=== PATIENT | male | born 1955 | race Caucasian/White ===

== ENCOUNTER 2023-07-16 05:52 | Day surgery (SDC) | payer OTHER, SELFPAY ==
[2023-07-03 11:21] VITALS: BMI 25.7
[2023-07-03 11:39] LABS: % Basophils 0.9 % (0-2); % Eosinophils 2.1 % (0-6); % Immature Granulocytes 0.5 % (0-0.5); % Lymphocytes 36.3 % (20.5-51.1); % Monocytes 10.3 % (1.7-9.3); % Neutrophils 49.9 % (42.2-75.2); Absolute Basophils 0.1 10^3/uL (0-0.2); Absolute Eosinophils 0.1 10^3/uL (0-0.7); Absolute Lymphocytes 2.1 10^3/uL (1.2-3.4); Absolute Monocytes 0.6 10^3/uL (0.1-0.6); Absolute Neutrophils 2.8 10^3/uL (1.4-6.5); Hematocrit 40.9 % (39.0-52.0); Hemoglobin 14.5 g/dL (13.0-18.0); Mean Corp Hgb Conc. 35.5 g/dL (33.0-37.0); Mean Corpuscular Hgb 35.5 pg (27.0-31.0); Mean Platelet Volume 9.5 fL (7.4-10.4); Nucleated Red Blood Cells % 0 % (-); Platelet Count 199 10^3/uL (130-400); Red Blood Cell Count 4.09 10^6/uL (4.70-6.10); Red Cell Dist. Width 16.6 % (11.5-14.5); White Blood Cell Count 5.7 10^3/uL (4.8-10.8)
[2023-07-03 11:49] LABS: INR 1.24; PT 15.4 Sec (11.4-14.6)
[2023-07-03 11:56] LABS: ALT (SGPT) 35 U/L (0-50); AST (SGOT) 49 U/L (17-59); Albumin 4.1 g/dl (3.5-5.0); Alkaline Phosphatase 113 U/L (38-126); Blood Urea Nitrogen 11 mg/dl (9-20); Calcium 9.3 mg/dl (8.4-10.2); Carbon Dioxide 34 mmol/L (22-30); Chloride 98 mmol/L (98-107); Estimated Creatinine Clearance 68 ml/min; Glucose 130 mg/dl (70-99); Magnesium 1.8 mg/dl (1.6-2.3); Potassium 3.5 mmol/L (3.5-5.1); Sodium 135 mmol/L (135-145); Total Bilirubin 1.1 mg/dl (0.2-1.3); Total Protein 6.9 g/dl (6.3-8.2); eGFR > 60.00
[2023-07-16] VITALS (11 sets, daily range): BP systolic 96–119; BP diastolic 47–63; BMI 25.8
[2023-07-16 09:06] LABS: ACT-LR - POC 266 Seconds (116-155)
[2023-07-16 09:37] LABS: ACT-LR - POC 310 Seconds (116-155)
[2023-07-16 10:14] LABS: ACT-LR - POC 366 Seconds (116-155)
[2023-07-16 10:31] LABS: ACT-LR - POC 322 Seconds (116-155)
[2023-07-16 10:50] LABS: ACT-LR - POC 158 Seconds (116-155)
--- NOTE | 2023-07-16 10:57 | ITS.CL.ABL ---
Workforce Specialist - Ablation
Ablation
Procedure Report:
Primary Service Desk Analyst: Albert Terry MD
Procedure Date: 07/16/2023
Patient History:
Patient is a 68-year-old male with past medical history significant for heart failure with preserved ejection fraction now mildly reduced, paroxysmal atrial fibrillation on Eliquis and amiodarone, tobacco use disorder, alcohol use, hypertension.
See H&P for complete details.
Indication:
Symptomatic paroxysmal atrial fibrillation
Heart failure with mildly reduced ejection fraction
Arrhythmia Specific History:
Prior Medical Therapies for Rate and Rhythm Control:
X Beta-sarah
[ ] Calcium channel-sarah
X Amiodarone
[ ] Dronederone
[ ] Sotalol
[ ] Flecainide
[ ] Dofetilide
[ ] Options limited by bradycardia
[ ] Options limited by comorbid renal disease
Prior Procedural Therapies for AF/AFL:
X Cardioversion
[ ] Pulmonary Vein Isolation
[ ] Posterior Wall Isolation
[ ] Additional lines (Specify)
[ ] Surgical Melendez-MAZE or PVI (Specify)
Procedure Performed:
X AF ablation procedure (44402) -- includes LA/CS pacing, trans-septal, 3D mapping, + ICE
[ ] +IV drug (93459)
[ ] +Other Arrhythmia (03043)
[ ] +Other AF Line/ablation (98860)
Risks and expected recovery has been explained in detail. Alternative options have been explored, and in a shared-decision making fashion we have decided that this was the most appropriate procedure.
Method
NPO status confirmed. Grounding pad applied. Defibrillator pads applied. Continuous surface ECG, pulse oximetry, and blood pressure were monitored. Procedure was performed under general anesthesia, with anesthesia services.
Both groins were clipped, prepped with Chloraprep, and draped in sterile fashion. Time out was called. Local anesthesia administered with bupivacaine. The right and left femoral veins were accessed for catheter placement, using ultrasound guidance,
micro-puncture needle/wire, and modified seldinger technique. 3 sheaths were placed. The following catheters were used:
[ ] Tacticath SE (D/F Curve) ablation catheter
X Viewflex 9Fr ICE catheter
X Inquiry decapolar 6Fr diagnostic catheter
[ ] CRD Hex 6Fr
X Arctic Front Advance Cryoballoon (28mm)
X Achieve Advance mapping catheter (15mm)
[ ] AcusMonkeysee AcuNav 8 Fr ICE catheter
[ ]Other: [ ]
Intracardiac ultrasound (ICE) was carefully advanced into the right atrium to guide sheath placement over a J-wire, catheter placement, guide trans-septal puncture, identify potential complications, identify anatomic structures and ensure proper
contact between ablation catheter and tissue.
Heparin was given prior to trans-septal puncture. Heparin was given to achieve and maintain a target ACT of 300-400 seconds.
Trans-septal access was performed under ICE guidance. The trans-septal puncture was performed with a SafeSept wire through a Brockenbrough needle assembly. The wire was visualized as it entered the LSPV. The Brockenbrough needle assembly, SafeSept
wire and sheath dilator were removed under negative pressure. The Protrack pigtail wire was advanced through the sheath into the left atrium with position confirmed on ICE and fluoroscopy. The fixed curve long sheath was exchanged from the steerable
sheath over the Protrack wire and was advanced into the LA and positioned at the mitral annulus.
ICE and 3D mapping was performed to identify relevant cardiac structures. A careful 3D map was created to assess for regions of low-voltage and abnormal electrogram signals. Additional mapping was performed as outlined below. See synopsis for
details.
Cryoballoon ablation was performed using freeze/thaw/freeze at 2-4 minute intervals. Ablation targets included Cryoballoon temperatures of -30 degrees @ 30 seconds with goal temp typically between -40 and -50 degrees Celsius with time to effect when
measurable recorded to guide duration of application and need for repeat ablation in each vein. Esophageal temperature monitored throughout intervention. Phrenic nerve pacing performed during cryoapplication in the right pulmonary veins to monitor
for any evidence of PNI requiring application termination. See synopsis and procedure log for details.
Catheter and sheath were removed from the left atrium and post-ablation intracardiac echo evaluation was consistent with pre-ablation with no changes and no pericardial effusion and there is no left atrial thrombus or left ventricle thrombus seen.
Electrophysiology study was performed. Hemostasis was obtained with figure of 8 stitch for each groin with manual pressure. Protamine was used for reversal.
Estimated Blood Loss
5-10 mL
Complications
None
Procedure Synopsis:
The patient entered the room in sinus rhythm. Three-dimensional mapping with EnSite system was performed with reconstruction of left atrium utilizing Achieve catheter. Intracardiac ultrasound and EnSite was used for guidance of ablation and
placement of the Cryoballoon. PV seal was confirmed with pressure waveform and ICE. Using the Achieve catheter, it was confirmed that pulmonary veins were active. Patient was noted to have a left common which split to superior and inferior veins
and to low mid branches from the right superior branching anteriorly and posteriorly respectively. All pulmonary veins were isolated successfully using Cryoballoon ablation using freeze/thaw/freeze cycles at 2-4-minute intervals, with good
isrm-ul-oatheg of isolation. Additional lesions were performed at the mid branches of the right superior to complete pulmonary vein isolation. During the right-sided PV ablation, phrenic nerve pacing was performed to assess the phrenic nerve
strength and the phrenic nerve was intact throughout the right-sided ablation. Pre- and post-pulmonary vein recording and pacing from the Achieve catheter was utilized to ensure complete pulmonary vein isolation. LA voltage map created at procedure
conclusion confirming WACA of bilateral PVs.
Fluoroscopy: 12.5 minutes; 32.09 mGy; DAP 3.86
Contrast used: 0 cc
Baseline Intervals:
Rhythm: Sinus rhythm
SC: 111 ms
QRS: 127 ms
QT: 515 ms
QTc: 535 ms
A-A: 925 ms
R-R: 925 ms
Post-Procedure Intervals:
SC: 122 ms
QRS: 127 ms
QT: 526 ms
QTc: 536 ms
A-A: 962 ms
R-R: 962 ms
AVWB: 410 ms
AERP: 600/290 ms
Recommendations
- Bedrest with straight-leg precautions as ordered
- Anticipate same day discharge if patient meeting clinical metrics
- Resume home medications as indicated
- Ok to resume anticoagulation tonight if patient and groin sites stable
- PPI daily for 30 days
- Plan for follow-up in office in 4-[address] Terry
� Can consider discontinuation of amiodarone at next office visit
Nilesh Taylor, DO
Clinical [employer]
cc: Albert Terry MD
[2023-07-16 12:34] LABS: ACT-LR - POC > 397 Seconds (116-155)
[2023-07-16 12:34] LABS: ACT-LR - POC > 397 Seconds (116-155)
--- NOTE | 2023-07-16 15:42 | W.PN.UPDATE ---
Update Note
Progress Note Update
Pt seen post PVI. Bilat groin sites without ht/bleeding, non tender. OOB ambulating without difficulty. Post EKG NSR 67s w/RBBB as before, no acute changes. Resume Eliquis today and continue other meds as before. Followup with Dr. Terry arranged.
Home today if groin sites/tele remain stable.
== END 2023-07-16 16:00 | disposition home or self-care (01) ==
LOC: CATH 05:52
PROVIDERS: ATTENDING PHYSICIAN Internal Medicine Cardiovascular Disease; FAMILY PHYSICIAN Family Medicine; OTHER PHYSICIAN Internal Medicine Cardiovascular Disease
DX: I48.0 Paroxysmal atrial fibrillation (principal); I11.0 Hypertensive heart disease with heart failure; I50.20 Unspecified systolic (congestive) heart failure; I45.10 Unspecified right bundle-branch block; F17.200 Nicotine dependence, unspecified, uncomplicated; Z79.01 Long term (current) use of anticoagulants
CPT/HCPCS: C1766; C1894; C1730; C1893; C1733; C1759; C1892; 36415; 75572; 76937; 80053; 83735; 85025; 85347; 85610; 86850; 86900; 86901; 93005; 93656; Q9967